=== PATIENT | male | born 1985 | race Caucasian/White ===

== ENCOUNTER 2023-09-18 09:17 | Emergency (ER) | payer MEDICAID ==
[~2023-09-18] VITALS: Ht 175.3 cm; Wt 67.4 kg
[2023-09-18 10:58] VITALS: BP 128/68; PULSE 78; RESP 14; TEMP 97.8; O2SAT 99
== END 2023-09-18 11:03 | disposition home or self-care (01) ==
LOC: ER 09:17
DX: S63.591A Other specified sprain of right wrist, initial encounter (principal); X58.XXXA Exposure to other specified factors, initial encounter; Y93.89 Activity, other specified; Y92.89 Other specified places as the place of occurrence of the external cause; Y99.8 Other external cause status
CPT/HCPCS: 29125; 73090; 73110; 99284